=== PATIENT | male | born 1965 | race Caucasian/White ===

== ENCOUNTER 2019-08-31 15:45 | Emergency (ER) | payer OTHER ==
--- NOTE | 2019-08-31 16:01 | PDOC ---
Attending Attestation - Resident Resident Name: Bárbara Fishman - ED Attending Attestation I have performed the following: I have examined & evaluated the patient, The case was reviewed & discussed with the resident, I agree w/resident's findings & plan - HPI HPI: 08/31/19 16:15 53 y/o male with diffuse abdominal pain and constipation for 1 week. Went to urgent care and had x-ray done showing constipation. OTC medications not working. Now with mild bright red blood. No fever, chills, N/V. No fall or trauma. Family hx of colon cancer and obstructions with parents. Had 3 colonoscopies in the past. - Physicial Exam PE: 08/31/19 16:17 VSS HEENT: unremarkable HEART: RRR w/o murmur Lungs: CTA b/l, no wheezing ABD: soft diffuse tenderness, no pulsatile mass +BS EXT: no C/C/E Neuro: grossly intact no focal deficits noted - Medical Decision Making 08/31/19 16:18 53 y/o with abdominal pain for 1 week Will obtain labs and CT abd/pelvis 08/31/19 18:[address] abdomen: no obstruction Fluids, rest, Tylenol Follow up with GI If worsen return to ER Dx: abdominal pain NOS Case discussed and reviewed with Dr. Fishman, agree with assessment
[2019-08-31 16:14] VITALS: BP 123/77; PULSE 82; TEMP 98.3; BMI 23.5
--- NOTE | 2019-08-31 16:19 | PDOC ---
History of Present Illness - General Chief Complaint: Constipation Stated Complaint: CONSTIPATION Time Seen by Provider: 08/31/19 15:52 - History of Present Illness Initial Comments: 08/31/19 16:11 53 y/o M hx of anxiety and depression presenting to ED with 1 wk of constpation and abdominal pain. Pain started 1 wk ago and diffuse constant pain, radiating to his back. He went to an urgent care facility 2 days ago where x-ray showed.no dilated loop of bowel, and a moderate to large amount of stool within the right colon and no gross free intraperitoneal air. He was discharged with instructions to use OTC stool softeners and enemas. He has tried miralax, MG citrate, saline enema, dulcolax with no improvement. He has only been able to pass water/liquid with no stool. He endorses bright red blood per rectum. He denies any nausea, vomiting, dysuria, hematuria,hx of abdominal surgeries. Family Hx: colon Ca. both sides of family. Past History - Past Medical History Allergies/Adverse Reactions: Allergies Allergy/AdvReac Type Severity Reaction Status Date / Time No Known Allergies Allergy Verified 08/31/19 15:47 Home Medications: Ambulatory Orders Bupropion HCl [Wellbutrin Xl] 300 mg PO DAILY 08/31/19 COPD: No Psychiatric Problems: Yes (anxiety, depression) - Psycho Social/Smoking Cessation Hx Smoking History: Never smoked Have you smoked in the past 12 months: No Information on smoking cessation initiated: No Hx Alcohol Use: No Review of Systems - Review of Systems Constitutional: No: Chills, Fever HEENTM: No: Eye Pain, Blurred Vision Respiratory: No: Cough, Shortness of Breath Cardiac (ROS): No: Chest Pain, Lightheadedness ABD/GI: No: Nausea, Vomiting : No: Burning, Dysuria Musculoskeletal: Yes: Back Pain Integumentary: No: Bruising, Change in Color Neurological: No: Headache, Numbness Psychiatric: Yes: Anxiety Hematologic/Lymphatic: No: Anemia, Blood Clots *Physical Exam - Vital Signs Last Vital Signs Temp Pulse Resp BP Pulse Ox 98.3 F 82 18 123/77 97 08/31/19 15:45 08/31/19 15:45 08/31/19 15:45 08/31/19 15:45 08/31/19 15:45 - Physical Exam Comments: 08/31/19 16:20 GENERAL: Awake, alert, and fully oriented, in no acute distress HEAD: No signs of trauma, normocephalic, atraumatic EYES: EOMI, sclera anicteric, conjunctiva clear ENT: Auricles normal inspection, hearing grossly normal, nares patent, oropharynx clear without exudates. Moist mucosa NECK: Normal ROM, supple, no lymphadenopathy, JVD, or masses LUNGS: No distress, speaks full sentences, clear to auscultation bilaterally HEART: Regular rate and rhythm, normal S1 and S2, no murmurs, rubs or gallops, peripheral pulses normal and equal bilaterally. ABDOMEN: Soft, diffuse tenderness to palpation. epigastric and LUQ guarding. EXTREMITIES : Normal inspection, Normal range of motion, no edema. No clubbing or cyanosis NEUROLOGICAL: Cranial nerves II through XII grossly intact. Normal speech, normal gait, no focal sensorimotor deficits SKIN: Warm, Dry, normal turgor, no rashes or lesions noted ED Treatment Course - LABORATORY CBC & Chemistry Diagram: 08/31/19 16:28 08/31/19 16:28 - RADIOLOGY Radiology Studies Ordered: Category Date Time Status ABDOMEN & PELVIS CT WITH CONTR [CT] Stat CT Scan 08/31/19 16:08 Ordered Medical Decision Making - Medical Decision Making 08/31/19 16:22 53 y/o M hx of anxiety and depression presenting to ED with 1 wk of constpation and abdominal pain. Labs: cbc, cmp, ua Imaging: ct abdomen and pelvis with contrast 08/31/19 17:07 UA- unremarkable CMP- pending 08/31/19 17:27 CMP unremarkable 08/31/19 18:42 CT impression REctum and sigmoid colon have been evauated. no evidence of constipation/ significant residual sool throughout the colon appendix and terminal ileum are normal in the RLQ. no diverticular disease benign hepatic and renal cysts. does nor represent polycystic disease prostate gland enlargement with calcifications consistent with chronic prostatits no dilation of bladeer or bladder all thickening, no stones. Follow up with GI Discharge - Discharge Information Problems reviewed: Yes Clinical Impression/Diagnosis: Abdominal pain Qualifiers: Abdominal location: unspecified location Qualified Code(s): R10.9 - Unspecified abdominal pain Condition: Stable Disposition: HOME - Admission No - Follow up/Referral Referrals: Christopher Valladares MD [Staff Physician] - - Patient Discharge Instructions Patient Printed Discharge Instructions: DI for Abdominal Pain-Adult Additional Instructions: You were seen in the ER today for abdominal pain and constipation A CT scan was done and results were communicated to you. There was no significant amount of stool found on the CT Follow up with a manager clinical research is recommended for further evaluation. Your care is not complete until you do so. Return to the ER if you develop fevers,chills, nausea, vomiting, - Post Discharge Activity
[2019-08-31] MEDS ORDERED: ACETAMINOPHEN 325 MG TABLET (FP) PO ONE (16:27)
[2019-08-31] MEDS ORDERED: ACETAMINOPHEN 325 MG TABLET (FP) ONE (16:28)
[2019-08-31 16:34] LABS: MCHC 33.9 g/dl (32.0-35.9); MEAN CELL VOLUME 93.4 fl (80-96)
[2019-08-31 16:38] LABS: BASO % 1.3 % (0-2.0); EOS % 2.4 % (0-4.5); HEMATOCRIT 42.3 % (35.4-49); HEMOGLOBIN 14.4 GM/dl (11.7-16.9); LYMPH % 19.1 % (8-40); MCH 31.7 pg (25.7-33.7); MEAN PLT VOLUME 9.7 fl (7.5-11.1); MONO % 6.3 % (3.8-10.2); NEUT % 70.9 % (42.8-82.8); PLATELET COUNT 258 K/MM3 (134-434); RBC 4.53 M/mm3 (4.00-5.60); RDW 12.4 % (11.9-15.9); WHITE BLOOD COUNT 5.9 K/mm3 (4.0-10.8)
[2019-08-31 16:55] LABS: ALBUMIN 3.9 g/dl (3.4-5.0); BILIRUBIN,TOTAL 0.7 mg/dl (0.2-1); CALCIUM 9.2 mg/dl (8.5-10); CREATININE 0.9 mg/dl (0.55-1.3); POTASSIUM 4.3 mmol/L (3.5-5.1); TOT PROT 6.9 g/dl (6.4-8.2)
== END 2019-08-31 18:51 | disposition home or self-care (01) ==
LOC: FER 15:45
DX: R10.9 Unspecified abdominal pain (principal); F41.8 Other specified anxiety disorders
CPT/HCPCS: 36415; 74177-TC; 80053; 81003; 85025; 99283-25